=== PATIENT | female | born 1985 | race Caucasian/White ===

== ENCOUNTER 2017-06-09 10:38 | Emergency (ER) | payer OTHER ==
[2017-06-09] MEDS ORDERED: SODIUM CHLORIDE 0.9% 500 ML IV STA (11:35)
--- NOTE | 2017-06-09 11:40 | ED ---
General Adult HPI - General Chief complaint: Vaginal Bleeding Stated complaint: Bleeding/ Time Seen by Provider: 06/09/17 11:19 Source: patient, RN notes reviewed Mode of arrival: ambulatory Limitations: no limitations - History of Present Illness Initial comments: 32 yo female presents to the ER with cc of vaginal bleeding in . Patient is a . She states she is about 5 weeks along by last menstrual cycle. She has not seen anyone for this yet. She states now some vaginal spotting today so she was concerned. There is no cramping. No fever chills. Patient states that she is not currently having any other symptoms. She does not have an [employer] in the area. Patient denies any recent fever, chills , shortness of breath, chest pain, back pain, abdominal pain, nausea vomiting, numbness or tingling, dysuria or hematuria, constipation or diarrhea, headaches or visual changes, or any other current symptoms. - Related Data Home Medications Medication Instructions Recorded Confirmed [id number] Acid 1 cap PO DAILY 06/09/17 06/09/17 [-U Capsule (formulary)] Allergies Allergy/AdvReac Type Severity Reaction Status Date / Time No Known Allergies Allergy Verified 06/09/17 11:30 Review of Systems ROS Statement: Those systems with pertinent positive or pertinent negative responses have been documented in the HPI. ROS Other: All systems not noted in ROS Statement are negative. Past Medical History Past Medical History: Thyroid Disorder History of Any Multi-Drug Resistant Organisms: None Reported Past Surgical History: No Surgical Hx Reported Past Psychological History: No Psychological Hx Reported Smoking Status: Former smoker Past Alcohol Use History: None Reported Past Drug Use History: None Reported General Exam Limitations: no limitations General appearance: alert, in no apparent distress ENT exam: Present: normal exam, mucous membranes moist Neck exam: Present: normal inspection. Absent: tenderness, meningismus, lymphadenopathy Respiratory exam: Present: normal lung sounds bilaterally. Absent: respiratory distress, wheezes, rales, rhonchi, stridor Cardiovascular Exam: Present: regular rate, normal rhythm, normal heart sounds. Absent: systolic murmur, diastolic murmur, rubs, gallop, clicks GI/Abdominal exam: Present: soft, normal bowel sounds. Absent: distended, tenderness, guarding, rebound, rigid External exam: Present: normal external exam Speculum exam: Present: normal speculum exam, vaginal bleeding (Minimal) By manual exam: Present: normal by manual exam Neurological exam: Present: alert, oriented X3 Psychiatric exam: Present: normal affect, normal mood Course Vital Signs 06/09/17 10:55 Temperature 98.1 F Pulse Rate 71 Respiratory 16 Rate Blood Pressure 135/84 O2 Sat by Pulse 98 Oximetry Medical Decision Making - Medical Decision Making 32-year-old female presents for vaginal bleeding in . This time ultrasound and lab work is been reviewed. This time we discussed close follow up with [employer] repeat blood work. We discussed return parameters all questions. Patient family stated the [facility] management this plan. All questions have been answered. This time they will be discharged. - Lab Data Result diagrams: 06/09/17 11:00 06/09/17 11:00 Lab Results 06/09/17 06/09/17 06/09/17 Range/Units 11:00 11:00 11:00 WBC 5.3 (3.8-10.6) k/uL RBC 4.21 (3.80-5.40) m/uL Hgb 13.2 (11.4-16.0) gm/dL Hct 39.8 (34.0-46.0) % MCV 94.4 (80.0-100.0) fL MCH 31.2 (25.0-35.0) pg MCHC 33.1 (31.0-37.0) g/dL RDW 13.0 (11.5-15.5) % Plt Count 323 (150-450) k/uL Neutrophils % 52 % Lymphocytes % 32 % Monocytes % 9 % Eosinophils % 2 % Basophils % 1 % Neutrophils # 2.7 (1.3-7.7) k/uL Lymphocytes # 1.7 (1.0-4.8) k/uL Monocytes # 0.5 (0-1.0) k/uL Eosinophils # 0.1 (0-0.7) k/uL Basophils # 0.1 (0-0.2) k/uL Sodium 142 (137-145) mmol/L Potassium 4.0 (3.5-5.1) mmol/L Chloride 104 (98-107) mmol/L Carbon Dioxide 25 (22-30) mmol/L Anion Gap 13 mmol/L BUN 4 L (7-17) mg/dL Creatinine 0.60 (0.52-1.04) mg/dL Est GFR (MDRD) Af Amer >60 (>60 ml/min/1.73 sqM) Est GFR (MDRD) Non-Af >60 (>60 ml/min/1.73 sqM) Glucose 69 L (74-99) mg/dL Calcium 9.3 (8.4-10.2) mg/dL Total Bilirubin 0.4 (0.2-1.3) mg/dL AST 58 H (14-36) U/L ALT 97 H (9-52) U/L Alkaline Phosphatase 75 (38-126) U/L Total Protein 7.7 (6.3-8.2) g/dL Albumin 4.8 (3.5-5.0) g/dL HCG, Quant 4113.1 mIU/mL Urine Color Urine Appearance (Clear) Urine pH (5.0-8.0) Ur Specific [place] (1.001-1.035) Urine Protein (Negative) Urine Glucose (UA) (Negative) Urine Ketones (Negative) Urine Blood (Negative) Urine Nitrite (Negative) Urine Bilirubin (Negative) Urine Urobilinogen (<2.0) mg/dL Ur Leukocyte Esterase (Negative) Urine RBC (0-5) /hpf Urine WBC (0-5) /hpf Ur Squamous Epith Cells (0-4) /hpf Urine Mucus (None) /hpf Blood Type O Positive Blood Type Recheck No 06/09/17 Range/Units 11:00 WBC (3.8-10.6) k/uL RBC (3.80-5.40) m/uL Hgb (11.4-16.0) gm/dL Hct (34.0-46.0) % MCV (80.0-100.0) fL MCH (25.0-35.0) pg MCHC (31.0-37.0) g/dL RDW (11.5-15.5) % Plt Count (150-450) k/uL Neutrophils % % Lymphocytes % % Monocytes % % Eosinophils % % Basophils % % Neutrophils # (1.3-7.7) k/uL Lymphocytes # (1.0-4.8) k/uL Monocytes # (0-1.0) k/uL Eosinophils # (0-0.7) k/uL Basophils # (0-0.2) k/uL Sodium (137-145) mmol/L Potassium (3.5-5.1) mmol/L Chloride (98-107) mmol/L Carbon Dioxide (22-30) mmol/L Anion Gap mmol/L BUN (7-17) mg/dL Creatinine (0.52-1.04) mg/dL Est GFR (MDRD) Af Amer (>60 ml/min/1.73 sqM) Est GFR (MDRD) Non-Af (>60 ml/min/1.73 sqM) Glucose (74-99) mg/dL Calcium (8.4-10.2) mg/dL Total Bilirubin (0.2-1.3) mg/dL AST (14-36) U/L ALT (9-52) U/L Alkaline Phosphatase (38-126) U/L Total Protein (6.3-8.2) g/dL Albumin (3.5-5.0) g/dL HCG, Quant mIU/mL Urine Color Light Yellow Urine Appearance Clear (Clear) Urine pH 7.5 (5.0-8.0) Ur Specific [place] 1.002 (1.001-1.035) Urine Protein Negative (Negative) Urine Glucose (UA) Negative (Negative) Urine Ketones Negative (Negative) Urine Blood Small H (Negative) Urine Nitrite Negative (Negative) Urine Bilirubin Negative (Negative) Urine Urobilinogen <2.0 (<2.0) mg/dL Ur Leukocyte Esterase Negative (Negative) Urine RBC <1 (0-5) /hpf Urine WBC <1 (0-5) /hpf Ur Squamous Epith Cells 2 (0-4) /hpf Urine Mucus Rare H (None) /hpf Blood Type Blood Type Recheck - Radiology Data Radiology results: report reviewed, image reviewed Disposition Clinical Impression: Threatened miscarriage Disposition: HOME SELF-CARE Condition: Stable Instructions: Threatened Miscarriage (ED) Additional Instructions: Please use medication as discussed. Please follow up with family doctor if symptoms have not improved over the next two days. Please return to the emergency room if your symptoms increase or worsen or for any other concerns. Referrals: Vanessa Green MD [STAFF PHYSICIAN] - 1-2 days Time of Disposition: 13:39
[2017-06-09 12:06] LABS: Basophils # (A) 0.1 k/uL (0-0.2); Basophils % (A) 1 %; Eosinophils # (A) 0.1 k/uL (0-0.7); Eosinophils % (A) 2 %; HCT 39.8 % (34.0-46.0); HGB 13.2 gm/dL (11.4-16.0); Lymphocytes # (A) 1.7 k/uL (1.0-4.8); Lymphocytes % (A) 32 %; MCH 31.2 pg (25.0-35.0); MCHC 33.1 g/dL (31.0-37.0); MCV 94.4 fL (80.0-100.0); Mean Platelet Volume 7.3; Monocytes # (A) 0.5 k/uL (0-1.0); Monocytes % (A) 9 %; Neutrophils # (A) 2.7 k/uL (1.3-7.7); Neutrophils % (A) 52 %; Platelet Count 323 k/uL (150-450); RBC 4.21 m/uL (3.80-5.40); WBC 5.3 k/uL (3.8-10.6)
[2017-06-09 12:12] LABS: ALT 97 U/L (9-52); AST 58 U/L (14-36); Albumin 4.8 g/dL (3.5-5.0); Alkaline Phosphatase 75 U/L (38-126); Anion Gap 13 mmol/L; Blood Urea Nitrogen 4 mg/dL (7-17); Calcium 9.3 mg/dL (8.4-10.2); Carbon Dioxide 25 mmol/L (22-30); Chloride 104 mmol/L (98-107); Glucose 69 mg/dL (74-99); Sodium 142 mmol/L (137-145); Total Bilirubin 0.4 mg/dL (0.2-1.3); Total Protein 7.7 g/dL (6.3-8.2)
[2017-06-09 12:28] LABS: HCG,Quantitative Serum 4113.1 mIU/mL
[2017-06-09 12:48] LABS: Appearance,Urine Clear (Clear); Bilirubin,Urine Negative (Negative); Blood,Urine Small (Negative); Color,Urine Light Yellow; Glucose,Urine (UA) Negative (Negative); Ketones,Urine Negative (Negative); Leukocyte Esterase,Urine Negative (Negative); Mucus,Urine Rare /hpf; Nitrite,Urine Negative (Negative); PH, Urine 7.5 (5.0-8.0); Protein,Urine Negative (Negative); RBC,Urine <1 /hpf (0-5); Specific Gravity,Urine 1.002 (1.001-1.035); Squamous Epithelial Cell,Urine 2 /hpf (0-4); Urobilinogen,Urine <2.0 mg/dL (<2.0)
[2017-06-09 12:50] LABS: WBC,Urine <1 /hpf (0-5)
--- NOTE | 2017-06-09 13:31 | US ---
EXAMINATION TYPE: US OB <=14 wks transvag DATE OF EXAM: 06/09/2017 COMPARISON: NONE CLINICAL HISTORY: Pain. EXAM PERFORMED: Transvaginal (TV) and Transabdominal (TA) EXAM MEASUREMENTS: GESTATIONAL AGE / DATING Physician Established: Not yet established Dates by LMP: (6 weeks/1 days) EDC: 02/01/18 Dates by First Scan: No previous this is first scan Dates by Current Scan for: Unable to date by today's study MATERNAL ANATOMY Uterus: 9.0 x 5.4 x 5.2cm Endometrium: Fluid-filled sac seen within, multiple tiny anechoic areas scattered throughout endometr ium Right Ovary: 3.3 x 2.2 x 2.0cm Left Ovary: 2.4 x 1.3 x 1.3cm Post CDS / Adnexa: wnl Presence of free fluid: small amount in cul de sac Presence of probable corpus luteal cyst measuring 1.4 x 1.2 x 1.5 GESTATION / SURVEY CRL: not yet identified MSD: 0.8 (Unable to date by today's study) Yolk Sac (normal less than 6mm): 1mm Date of LMP: 04/27/17 Beta HcG (if available): 4113 IMPRESSION: Fluid-filled sac within the endometrium without a definitive pole. Findings may represent a nor mal too early to detect. Other etiologies including missed or ectopic no t excluded. Correlate with serial beta hCG and pelvic ultrasound.
[2017-06-09 13:41] VITALS: BP 115/56; PULSE 94; RESP 18; TEMP 98
== END 2017-06-09 13:51 | disposition home or self-care (01) ==
LOC: EC 10:38
DX: O20.0 Threatened abortion (principal); Z87.891 Personal history of nicotine dependence; Z79.899 Other long term (current) drug therapy
CPT/HCPCS: 36415; 76801; 76817; 80053; 81001; 84702; 85025; 86900; 86901; 87086; 96360; 96361; 99284

== ENCOUNTER → 2017-06-11 | Outpatient (CLI) | payer OTHER | END | disposition home or self-care (01) | LOC: LABWHC1 14:03 | PROVIDERS: ATTEND Physician Assistant | DX: O20.0 Threatened abortion (principal); Z3A.00 Weeks of gestation of pregnancy not specified | CPT/HCPCS: 36415; 84702 ==